=== PATIENT | male | born 1965 | race Caucasian/White ===

== ENCOUNTER 2018-11-23 17:12 | Emergency (ER) | payer BC, OTHER ==
[~2018-11-23] VITALS: Ht 182.9 cm; Wt 93.0 kg
[2018-11-23 18:31] VITALS: BP 138/92
== END 2018-11-23 18:21 | disposition home or self-care (01) ==
LOC: ER 17:12
DX: S50.861A Insect bite (nonvenomous) of right forearm, initial encounter (principal); W57.XXXA Bitten or stung by nonvenomous insect and other nonvenomous arthropods, initial encounter; Y93.89 Activity, other specified; Y92.89 Other specified places as the place of occurrence of the external cause; Y99.8 Other external cause status